=== PATIENT | female | born 1955 | race Caucasian/White ===

== ENCOUNTER 2017-02-15 07:57 | Day surgery (SDC) | payer BC ==
--- NOTE | ~2017-02-15 | OP ---
Record Of Operation [facility] [address] [place]. [address] NAME: FLEX PENNY : 59 STATUS : REG [facility]#: [id number] AGE: 61 ADM/REG DATE : 02/15/17 MR#: [id number] REPORT SERV DATE: 02/15/17 DICTATED BY: LEOPOLDO DE LA FUENTE DATE: 02/15/17 REPORT STATUS : Draft TRANSCRIBED BY: MODL DATE: 02/15/17 DATE OF PROCEDURE: 02/15/2017 ENDOSCOPIC ULTRASOUND REPORT REASON FOR ENDOSCOPIC ULTRASOUND: Suspected mass in the pancreas with obstructive jaundice. Ms. Penny is a 61-year-old woman who presented with obstructive jaundice. CT revealed possible mass in the pancreas. INFORMED CONSENT: The patient was consented for both endoscopic ultrasound and ERCP. Prior to this, the risks of these procedures, as well as risk of bleeding, infection, perforation, adverse reaction to sedatives, missed lesion, missed diagnosis, and pancreatitis were explained to the patient in detail. She knows that any complication could require surgery and could be life-threatening. NPO: The patient was n.p.o. greater than eight hours prior to the procedure. SEDATION: The patient was sedated using general anesthesia. DESCRIPTION OF PROCEDURE: Initially, a linear echoendoscope was inserted to the second portion of the duodenum. The balloon was inflated and the pancreas was evaluated. The patient's pancreatic parenchyma appeared slightly lobular within the body and tail of the pancreas. Within the head region of the pancreas, there was noted to be an area of pancreatic duct, where the pancreatic duct was noted to be dilated at 5 mm, and it terminated abruptly. The sina mellitus area was somewhat slightly more hypoechoic in the rest of the pancreas, although, this was not. This area was very poorly differentiated from rest of the pancreas that measured 23 x 20 mm. A 22-gauge needle was used and six passes were obtained through this area. In addition, the bile duct was noted and appeared to have either diffuse thickening with infiltration of the duct more proximally and appears hypoechoic without clear fluid within this duct. I suspect in retrospect from the subsequent ERCP that follow this that the area where the pancreatic duct terminated was likely in the site of the anomalous pancreatic or biliary junction and this is in fact most likely not a pancreatic mass. There was no lymphadenopathy noted. No obvious lesions were noted within the left lobe of the liver. The jejunum, stomach, and the esophagus otherwise appeared normal. The gallbladder appeared abnormal, appeared to have debride versus multiple polyps within it. Immediately following this endoscopic ultrasound, the ERCP was performed. The endoscope was inserted in the second portion of the duodenum. The pill appeared grossly normal. Initial contrast, it appeared that the pancreatic duct was filling, and there possibly appeared to be some abnormal filling of the bile duct more proximally. 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 There was narrowing of both the pancreatic and bile duct in this area focally. Upstream of this, the bile duct was noted to have a very irregular-appearing stricture in the common hepatic bile duct that appeared Record Of Operation [facility] [id number] [facility] [place]. [address] NAME: FLEX PENNY : 59 STATUS : REG [facility]#: [id number] AGE: 61 ADM/REG DATE : 02/15/17 MR#: [id number] REPORT SERV DATE: 02/15/17 DICTATED BY: LEOPOLDO DE LA FUENTE DATE: 02/15/17 REPORT STATUS : Draft TRANSCRIBED BY: VEENA DATE: 02/15/17 almost apple core like in nature. In addition, the visualized intrahepatics which included most of the right and central branches appeared beaded and appeared similar in pattern to that seen with primary sclerosing cholangitis. Initially, due to somewhat difficulty and the confusion the bile duct, a stent was placed in the pancreatic duct, this was subsequently removed. Following this exam, an attempt was made to place a 10- Guamanian 12 cm stent within the bile duct, though I could not push this past anomalous pancreaticobiliary junction where it was narrowed, and subsequently a 12 cm 8.5-Guamanian was placed within the proximal common hepatic duct near the bifurcation with good drainage. During the procedure, once it was determined the patient had somewhat of PSC-like picture, the patient was given antibiotics Levaquin 750 mg and this will be completed following the procedure. IMPRESSION: 1. 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 2. Primary sclerosing cholangitis like picture within the visualized intrahepatic ducts. 3. 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 PLAN: 1. Await cytology from the brushings and biopsies. 2. Continue current diet. 3. Continue current medications. We will continue with seven days of Levaquin. GO/MODL Leopoldo De La Fuente MD / [id number] CC: MD Sumanth Minor M.D.
[~2017-02-15 07:57] MED LIST: ACET500CAP PO; ADVIL PO; ARIMIDEX1 PO; LOP50 PO; MULTIPLE VIT PO; VITAMIN D1000 UNI1 PO; ZANTAC150 MG PO
[2017-02-15 09:32] LABS: ALBUMIN 3.2 G/DL (3.5-5.0); CALCIUM, SERUM 9.6 MG/DL (8.5-10.4); CHLORIDE, SERUM 109 MMOL/L (96-112); CO2 (CARBON DIOXIDE) 27 MMOL/L (24-34); CREATININE 0.53 MG/DL (0.55-1.02); DIRECT BILIRUBIN 4.6 MG/DL (0.0-0.4); GFR AFRICAN AMERICAN 120 ML/MIN (>=60); GFR NON AFRICAN AMERICAN 104 ML/MIN (>=60); POTASSIUM, SERUM 4.5 MMOL/L (3.5-5.3); SGOT(AST) 148 U/L (5-40); SGPT(ALT) 242 U/L (5-65); SODIUM, SERUM 138 MMOL/L (135-148); TOTAL PROTEIN 7.2 G/DL (6.0-8.5)
[2017-02-15 09:33] LABS: ALKALINE PHOSPHATASE 1436 U/L (45-117); BUN (BLOOD UREA NITROGEN) 13 MG/DL (6-23); GLUCOSE, SERUM 114 MG/DL (60-99); INDIRECT BILIRUBIN(NOT ORDER) 0.8 MG/DL (0.1-0.9); TOTAL BILIRUBIN 5.4 MG/DL (0-1.2)
[2017-02-19] MEDS ORDERED: LEVAQUIN5T PO (12:13)
[2017-03-10] MEDS ORDERED: ZOFRAN (14:00)
== END 2017-02-15 23:59 | disposition home or self-care (01) ==
LOC: DMU 07:57
PROVIDERS: Anesthesiology; Internal Medicine Gastroenterology
PROC: 0DJ08ZZ Inspection of Upper Intestinal Tract, Via Natural or Artificial Opening Endoscopic (ICD-10-PCS; principal; 2017-02-15 10:00)
PROC: 0F758DZ Dilation of Right Hepatic Duct with Intraluminal Device, Via Natural or Artificial Opening Endoscopic (ICD-10-PCS; 2017-02-15 10:00)
DX: C25.0 Malignant neoplasm of head of pancreas (principal); C24.0 Malignant neoplasm of extrahepatic bile duct; K83.1 Obstruction of bile duct; K83.0 Cholangitis; K58.9 Irritable bowel syndrome, unspecified; K21.9 Gastro-esophageal reflux disease without esophagitis; Z79.899 Other long term (current) drug therapy; Z85.3 Personal history of malignant neoplasm of breast; Z90.11 Acquired absence of right breast and nipple; Z98.890 Other specified postprocedural states
CPT/HCPCS: 74330; 80048; 80076; 88112; 88173; 88305; 93005; A9270-GY; C1725; C1769; C1876; C2617; C2625; J1956; J2405; J2550; J2710; J3010; Q9967

== ENCOUNTER 2017-03-12 08:42 | Day surgery (SDC) | payer BC ==
--- NOTE | ~2017-03-12 | EGD ---
EGD REPORT [facility] [address] [address] NAME: SERENA PENNY : 59 STATUS : REG [facility]#: [id number] AGE: 61 ADM/REG DATE : 03/12/17 MR#: [id number] REPORT SERV DATE: 03/12/17 DICTATED BY: ELLIE MCDONNELL DATE: 03/12/17 REPORT STATUS : Draft TRANSCRIBED BY: [facility] DATE: 03/12/17 Endoscopy Center Patient Name: Serena Penny Date of : 1955 Attending MD: ELLIE MCDONNELL, Procedure Date No Time: 03/12/2017 Procedure: ERCP Indications: Jaundice Referring MD: JAKUB SANTAMARIA Medicines: General Anesthesia. Levaquin 750 mg IV. Complications: No immediate complications. Estimated blood loss: None Procedure: Pre-Anesthesia Assessment: - ASA Grade Assessment: III - A patient with severe systemic disease. After obtaining informed consent, the scope was passed under direct vision. Throughout the procedure, the patient's blood pressure, pulse, and oxygen saturations were monitored continuously. The Duodenoscope was introduced through the mouth, and advanced to the duodenum and used to inject contrast into the bile duct. The ERCP was accomplished without difficulty. The patient tolerated the procedure well. Findings: One stent originating in the biliary tree was emerging from the major papilla. Biliary sphincterotomy was made with a needle knife over a biliary stent using ERBE electrocautery. There was no post-sphincterotomy bleeding. One stent was removed from the biliary tree using a snare. The bile duct was deeply cannulated with the short-nosed traction sphincterotome. Contrast was injected. I personally interpreted the bile duct images. Ductal flow of contrast was adequate. The upper third of the main bile duct contained a single stenosis 20 mm in length. One 10 mm by 4 cm intraductal bare metal stent was placed into the left hepatic duct. Bile flowed through the stent. The stent was in good position. One 10 mm by 10 cm transpapillary bare metal stent was placed into the right hepatic duct. Bile flowed through the stent. The stent was in good position. Of note the patient had an anomalous pancreaticobiliary junction. Impression: - One stent from the biliary tree was seen in the major papilla. - One stent was removed from the biliary tree. - A biliary stricture was found. Recommendation: - Return to previous diet. EGD REPORT [address] [address] NAME: SERENA PENNY : 59 STATUS : [place] [facility] [id number] AGE: 61 ADM/REG DATE : 03/12/17 MR#: [id number] REPORT SERV DATE: 03/12/17 DICTATED BY: ELLIE MCDONNELL DATE: 03/12/17 REPORT STATUS : Draft TRANSCRIBED BY: [employer] DATE: 03/12/17 - Continue present medications. - Return to referring physician. Procedure Code(s): --- Professional --- 63992, Endoscopic retrograde cholangiopancreatography (ERCP); with placement of endoscopic stent into biliary or pancreatic duct, including pre- and post-dilation and guide wire passage, when performed, including sphincterotomy, when performed, each stent [id number], Endoscopic retrograde cholangiopancreatography (ERCP); with placement of endoscopic stent into biliary or pancreatic duct, including pre- and post-dilation and guide wire passage, when performed, including sphincterotomy, when performed, each stent [id number], Endoscopic retrograde cholangiopancreatography (ERCP); with removal of foreign body(s) or stent(s) from biliary/pancreatic duct(s) Diagnosis Code(s): --- Professional --- Z96.89, Presence of other specified functional implants Z46.59, Encounter for fitting and adjustment of other gastrointestinal appliance and device K83.1, Obstruction of bile duct R17, Unspecified jaundice CPT copyright 2013 [employer]. All rights reserved. The codes documented in this report are preliminary and upon skin care therapist review may be revised to meet current compliance requirements. ELLIE MCDONNELL, 03/12/2017 11:03 AM Number of Addenda: 0 Note Initiated On: 03/12/2017 9:40 AM [address] [address]
[~2017-03-12 08:42] MED LIST changes: +LEVAQUIN5T PO; +ZOFRAN
== END 2017-03-12 23:59 | disposition home or self-care (01) ==
LOC: DMU 08:42
PROVIDERS: Internal Medicine Gastroenterology
PROC: 0F7D8DZ Dilation of Pancreatic Duct with Intraluminal Device, Via Natural or Artificial Opening Endoscopic (ICD-10-PCS; principal; 2017-03-12 10:30)
PROC: 0FPD8DZ Removal of Intraluminal Device from Pancreatic Duct, Via Natural or Artificial Opening Endoscopic (ICD-10-PCS; 2017-03-12 10:30)
DX: K83.1 Obstruction of bile duct (principal); R17 Unspecified jaundice; K21.9 Gastro-esophageal reflux disease without esophagitis; C22.1 Intrahepatic bile duct carcinoma; D64.9 Anemia, unspecified; K58.9 Irritable bowel syndrome, unspecified; Z96.89 Presence of other specified functional implants; Z46.59 Encounter for fitting and adjustment of other gastrointestinal appliance and device; Z85.3 Personal history of malignant neoplasm of breast; Z90.11 Acquired absence of right breast and nipple; Z98.890 Other specified postprocedural states; Z79.899 Other long term (current) drug therapy
CPT/HCPCS: 74330; A9270-GY; C1769; C1876; J0330; J1956; J2250; J2405; J2710; J3010